=== PATIENT | female | born 1990 | race Caucasian/White ===

== ENCOUNTER → 2016-08-26 | Outpatient (CLI) | payer OTHER ==
[2016-08-26 13:59] LABS: BASO % 0.8 % (0.0-1.0); EOS # 0.1 K/mm3 (0.0-0.50); EOS % 1.8 % (0.0-3.0); LYMPH # 1.7 K/mm3 (1.5-6.5); LYMPH % 31.4 % (24.0-44.0); MEAN CORPUSCULAR HGB CONC 35.2 g/dl (32.0-36.5); MONO # 0.3 K/mm3 (0.0-0.8); MONO % 5.8 % (0.0-5.0); NEUTROPHILS # 3.1 K/mm3 (1.8-7.7); NEUTROPHILS % 58.2 % (36.0-66.0); RED CELL DISTRIBUTION WIDTH 12.1 % (11.5-14.5); WHITE BLOOD COUNT 5.4 K/mm3 (4.0-10.0)
[2016-08-26 14:03] LABS: CONTROL LINE MONO INT CTR LINE PRESENT
[2016-08-26 14:11] LABS: ALBUMIN 3.8 GM/DL (3.2-5.2); ALBUMIN/GLOBULIN RATIO 1.15 (1.00-1.93); ALKALINE PHOSPHATASE 111 U/L (45-117); ALT/SGPT 16 U/L (12-78); ANION GAP 7 MEQ/L (8-16); AST/SGOT 7 U/L (15-37); BILIRUBIN,TOTAL 0.2 MG/DL (0.2-1.0); BLOOD UREA NITROGEN 20 MG/DL (7-18); CALCIUM LEVEL 8.9 MG/DL (8.5-10.1); CARBON DIOXIDE LEVEL 28 MEQ/L (21-32); CHLORIDE LEVEL 107 MEQ/L (98-107); CREATININE FOR GFR 0.72 MG/DL (0.55-1.02); GLOMERULAR FILTRATION RATE > 60.0 (>60); GLUCOSE, FASTING 86 MG/DL (70-105); POTASSIUM SERUM 4.2 MEQ/L (3.5-5.1); SODIUM LEVEL 142 MEQ/L (136-145); THYROXINE (T4) 9.8 UG/DL (4.5-12.0); TOTAL PROTEIN 7.1 GM/DL (6.4-8.2)
== END | disposition home or self-care (01) ==
LOC: M SMT 11:24
PROVIDERS: ATTEND Physician Assistant
DX: R53.83 Other fatigue (principal); M25.50 Pain in unspecified joint

== ENCOUNTER → 2016-09-18 | Outpatient (CLI) | payer OTHER ==
--- NOTE | 2016-09-18 11:43 | REP ---
Clinical: Thyroid nodule. Technique: Real time rteana scale and color evaluation using linear high frequency transducer. Findings: The right thyroid lobe is normal in contour, size, echogenicity without nodular or cystic component and measures 4.7 x 1.7 x 1.2 cm. The left thyroid lobe is normal in contour and size measuring 4.5 x 1.5 x 1.5 cm with 9 mm lower pole nonspecific nodule. The isthmus measures 2.2 mm in width. Impression: 9 mm left lower pole nonspecific nodule. Signed by Corey Jolley MD 09/18/2016 11:35 A
== END | disposition home or self-care (01) ==
LOC: M RAD 10:59
PROVIDERS: ATTEND Family Medicine
DX: E04.1 Nontoxic single thyroid nodule (principal)

== ENCOUNTER → 2016-10-12 | Outpatient (CLI) | payer OTHER ==
[2016-10-12 13:33] LABS: FREE T4 1.17 NG/DL (0.76-1.46)
[2016-10-12 13:39] LABS: THYROID PEROXIDASE ANTIBODY 259.1 U/ML (<60.0)
== END ==
LOC: M SMT 08:25
PROVIDERS: ATTEND Family Medicine
DX: E03.9 Hypothyroidism, unspecified (principal); E04.1 Nontoxic single thyroid nodule; E55.9 Vitamin D deficiency, unspecified

== ENCOUNTER → 2016-12-09 | Outpatient (CLI) | payer OTHER ==
[~2016-12-09] MED LIST: LEVO75TA4 PO; SERT-138 PO; VITA50003 PO
[2016-12-09 19:39] LABS: FREE T4 1.37 NG/DL (0.76-1.46)
== END ==
LOC: M SMT 13:55
PROVIDERS: ATTEND Family Medicine
DX: E55.9 Vitamin D deficiency, unspecified (principal); E06.3 Autoimmune thyroiditis

== ENCOUNTER 2016-12-10 12:10 | Emergency (ER) | payer OTHER ==
[~2016-12-10] VITALS: Ht 162.6 cm; Wt 107.0 kg
[2016-12-10 12:10] VITALS: BP 128/91
[2016-12-10] MEDS ORDERED: VITA50003 PO (12:22)
[2016-12-10] MEDS ORDERED: SERT-138 PO (12:22)
[2016-12-10] MEDS ORDERED: LEVO75TA4 PO (12:22)
[2016-12-10] MEDS ORDERED: DOXYCYCLINE HYCLATE 100 MG TAB PO ONE (12:45)
== END 2016-12-10 13:03 | disposition home or self-care (01) ==
LOC: M ED 12:43
DX: S70.362A Insect bite (nonvenomous), left thigh, initial encounter (principal); W57.XXXA Bitten or stung by nonvenomous insect and other nonvenomous arthropods, initial encounter; Y92.89 Other specified places as the place of occurrence of the external cause; Y93.89 Activity, other specified; Y99.8 Other external cause status; E03.9 Hypothyroidism, unspecified; D68.51 Activated protein C resistance; F41.9 Anxiety disorder, unspecified; F32.9 Major depressive disorder, single episode, unspecified; F90.9 Attention-deficit hyperactivity disorder, unspecified type; Z88.0 Allergy status to penicillin; Z88.1 Allergy status to other antibiotic agents; Z79.899 Other long term (current) drug therapy

== ENCOUNTER → 2017-04-07 | Outpatient (CLI) | payer OTHER ==
[~2017-04-07] MED LIST changes: +VITA1CAP40 PO; -VITA50003 PO
--- NOTE | 2017-04-07 14:22 | REP ---
Clinical: Hyperthyroidism and known nodule . Technique: Real time retana scale and color evaluation using linear high frequency transducer. Comparison: 09/18/2016. Findings: The thyroid gland is normal in contour, size, shape and overall parenchymal echogenicity. The right lobe measures 5.0 x 5.7 x 0.9 cm and is without cyst or nodule. The left lobe measures 4.5 x 1.6 x 1.2 cm with a new 5.4 x 3.1 x 4.7 mm mid pole nodule and 11.3 x 7.6 x 9.5 mm solid lower pole nodule which has increased from prior examination when measuring 9.3 x 5.4 x 6.9 mm. Impression: Two nodules in the left thyroid lobe as described above. Signed by Corey Jolley MD 04/07/2017 02:14 P
[2017-04-07 14:32] LABS: BASO # 0.1 K/mm3 (0.0-0.2); BASO % 1.1 % (0.0-1.0); EOS # 0.1 K/mm3 (0.0-0.50); EOS % 1.6 % (0.0-3.0); LARGE UNSTAINED CELL # 0.1 K/mm3 (0.0-0.4); LARGE UNSTAINED CELL % 1.2 % (0.0-4.0); LYMPH # 1.5 K/mm3 (1.5-6.5); LYMPH % 25.8 % (24.0-44.0); MEAN CORPUSCULAR HEMOGLOBIN 29.8 pg (27.0-33.0); MEAN CORPUSCULAR HGB CONC 33.1 g/dl (32.0-36.5); MEAN CORPUSCULAR VOLUME 89.8 fl (80.0-96.0); MONO # 0.3 K/mm3 (0.0-0.8); MONO % 5.2 % (0.0-5.0); NEUTROPHILS # 3.6 K/mm3 (1.8-7.7); NEUTROPHILS % 65.1 % (36.0-66.0); PLATELET COUNT, AUTOMATED 274 k/mm3 (150-450); WHITE BLOOD COUNT 5.5 K/mm3 (4.0-10.0)
[2017-04-07 15:14] LABS: FOLLICLE STIMULATING HORMONE 6.8 mIU/mL; LUTEINIZING HORMONE 4.9 mIU/mL
[2017-04-07 15:15] LABS: ALBUMIN 3.7 GM/DL (3.2-5.2); ALBUMIN/GLOBULIN RATIO 1.03 (1.00-1.93); ALKALINE PHOSPHATASE 108 U/L (45-117); ALT/SGPT 37 U/L (12-78); ANION GAP 9 MEQ/L (8-16); AST/SGOT 20 U/L (15-37); BILIRUBIN,TOTAL 0.4 MG/DL (0.2-1.0); BLOOD UREA NITROGEN 9 MG/DL (7-18); CARBON DIOXIDE LEVEL 28 MEQ/L (21-32); CHLORIDE LEVEL 103 MEQ/L (98-107); CREATININE FOR GFR 0.62 MG/DL (0.55-1.02); FREE T4 1.07 NG/DL (0.76-1.46); GLOMERULAR FILTRATION RATE > 60.0 (>60); GLUCOSE, FASTING 90 MG/DL (70-105); POTASSIUM SERUM 4.5 MEQ/L (3.5-5.1); SODIUM LEVEL 140 MEQ/L (136-145); TOTAL PROTEIN 7.3 GM/DL (6.4-8.2)
[2017-04-09 00:06] LABS: Lyme Disease IgG/IgM Antibodie <0.91 ISR (0.00-0.90); Lyme Disease IgM Ab Quantitati <0.80 index (0.00-0.79)
== END ==
LOC: M LAB 13:40 → M RAD 13:40
PROVIDERS: ATTEND Physician Assistant Medical
DX: Z13.0 Encounter for screening for diseases of the blood and blood-forming organs and certain disorders involving the immune mechanism (principal); Z13.29 Encounter for screening for other suspected endocrine disorder; E04.1 Nontoxic single thyroid nodule; N91.1 Secondary amenorrhea; A69.20 Lyme disease, unspecified

== ENCOUNTER → 2017-04-26 | Outpatient (CLI) | payer OTHER ==
[2017-04-26 15:13] LABS: PROLACTIN 6.4 NG/ML
== END ==
LOC: M SMT 10:37
PROVIDERS: ATTEND Nurse Practitioner Women's Health
DX: N97.9 Female infertility, unspecified (principal)

== ENCOUNTER → 2017-05-03 | Outpatient (REF) | payer OTHER | LOC: M LAB REF 16:40 | PROVIDERS: ATTEND Radiology Practitioner Assistant | DX: E04.1 Nontoxic single thyroid nodule (principal) ==

== ENCOUNTER → 2017-06-09 | Outpatient (CLI) | payer OTHER | LOC: M SMT 10:11 | PROVIDERS: ATTEND Family Medicine | DX: N91.1 Secondary amenorrhea (principal); E06.3 Autoimmune thyroiditis; E55.9 Vitamin D deficiency, unspecified ==